=== PATIENT | male | born 1990 | race Caucasian/White ===

== ENCOUNTER 2020-10-30 15:16 | Emergency (ER) | payer MEDICAID ==
[~2020-10-30] VITALS: Ht 177.8 cm; Wt 115.0 kg
[2020-10-30 15:22] VITALS: BP 149/98
[2020-10-30] MEDS ORDERED: IBUPROFEN 600MG TABLET PO ONE (16:00)
[2020-10-30] MEDS ORDERED: IBUP-2029 MT (17:07)
== END 2020-10-30 19:24 | disposition home or self-care (01) ==
LOC: ER 15:16
DX: R51.9 Headache, unspecified (principal); Z98.890 Other specified postprocedural states
CPT/HCPCS: 99283